=== PATIENT | female | born 1985 | race Caucasian/White ===

== ENCOUNTER → 2016-10-06 | Outpatient (CLI) | payer OTHER ==
--- NOTE | ~2016-10-06 | CR126 ---
[facility] A Service of [facility] RADIOLOGY TEXT RESULTS PATIENT: JESSICA KEYES LOCATION: [facility] : [birth year] UNIT #: [id number] AGE: [address]: Brook Varela SEX: F ORDER DR: [id number] [address] [address] [id number] O MR#: [id number] #: [id number] NAME: JESSICA KEYES : 1985 SEX: F STUDY DATE/TIME: 10/06/2016 14:46 UNIT: [facility] ROOM: STUDY DESCRIPTION: CR Foot Complete Min 3 View Lt Attending Physician: Brook Varela A.P.R.N. Referring Physician: Brook Varela A.P.R.N. Ordering Physician: Abdifatah Not Listed Primary Care Physician: Brook Varela A.P.R.N. MEDICAL IMAGING REPORT This report is preliminary unless electronic signature is present. EXAM Left foot, 10/06/2016 INDICATIONS Left foot pain in a 30-year-old female whose foot got stepped on. Pain and swelling. TECHNIQUE 3 views. COMPARISON No comparisons. FINDINGS The examination is negative. No acute fractures. Soft tissues unremarkable. IMPRESSION Negative Dictated by... Jaydon Drummond M.D. THIS IS AN ELECTRONICALLY VERIFIED REPORT Jaydon Drummond M.D. at 10/07/2016 5:03 PM Nancie TD: 10/07/2016 11:47 JOB #: [id number] MEDICAL IMAGING REPORT [facility] A Service [facility] RADIOLOGY TEXT RESULTS PATIENT: JESSICA KEYES LOCATION: [facility] : 89 UNIT #: [id number] AGE: [address]: Brook Varela SEX: F ORDER DR: Page 1 of 1
== END | disposition home or self-care (01) ==
LOC: SRAD 14:37
DX: M79.672 Pain in left foot (principal)
CPT/HCPCS: 73630